=== PATIENT | female | born 2000 | race Caucasian/White ===

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

== ENCOUNTER 2023-08-08 22:07 | Emergency (ER) | payer OTHER ==
[~2023-08-08] VITALS: Ht 160 cm; Wt 45.4 kg
[~2023-08-08 22:07] MED LIST changes: +NORETHIND-ETH1 EAC1 PO; +PYRIDIUM200 M1 PO; +SEPTDS PO
[2023-08-08 22:42] LABS: BASO % 0.4 % (0.0-1.0); BILIRUBIN Negative (Negative); BLOOD Trace-Lysed (Negative); CLARITY Clear (Clear); COLOR Yellow (Yellow); EOS # 0.1 10*3/uL (0.0-0.4); EOS % 1.3 % (1.0-4.0); GLUCOSE Negative (Negative); HEMATOCRIT 40.3 % (37.0-47.0); KETONE Negative (Negative); LEUKO ESTERASE Negative (Negative); LYMPH # 3.6 10*3/uL (1.3-4.4); LYMPH % 34.5 % (27.0-41.0); MEAN CELL VOLUME 94.2 fl (81.0-99.0); MEAN CORPUSCULAR HGB 31.3 pg (27.0-31.0); MEAN CORPUSCULAR HGB CONC 33.3 g/dl (33.0-37.0); MEAN PLATELET VOLUME 8.2 fl (9.6-12.3); MONO # 0.9 10*3/uL (0.1-1.0); MONO % 8.9 % (3.0-9.0); NEUT # 5.7 10*3/uL (2.3-7.9); NEUT % 54.6 % (47.0-73.0); NITRITE Negative (Negative); PH 5.5 (4.5-8.0); PLATELET COUNT AUTOMATED 353 10*3/uL (130-400); RED BLOOD COUNT 4.28 10*6/uL (4.10-5.10); WHITE BLOOD COUNT 10.4 10*3/uL (4.8-10.8)
[2023-08-08 22:53] LABS: ACT PARTIAL THROMBO TIME 24.6 SECONDS (20.0-32.1)
[2023-08-08 23:01] LABS: BACTERIA 1+; MUCOUS 1+
[2023-08-08 23:11] LABS: BUN 5 mg/dl (9-23); CHLORIDE 105 mmol/L (98-107); POTASSIUM 4.1 mmol/L (3.4-5.1)
[2023-08-08] MEDS ORDERED: CEPHALEXIN500 M1 PO (23:13)
[2023-08-08] MEDS ORDERED: CEPHALEXIN 500 MG CAP PO ONE (23:15)
== END 2023-08-08 23:24 | disposition home or self-care (01) ==
LOC: ED 22:07
PROVIDERS: Nurse Practitioner Family
DX: O46.8X1 Other antepartum hemorrhage, first trimester (principal); R82.71 Bacteriuria; O99.331 Smoking (tobacco) complicating pregnancy, first trimester; F17.200 Nicotine dependence, unspecified, uncomplicated; Z3A.10 10 weeks gestation of pregnancy

== ENCOUNTER 2024-09-25 09:25 | Emergency (ER) | payer OTHER ==
[~2024-09-25] VITALS: Ht 160 cm; Wt 45.4 kg
[~2024-09-25 09:25] MED LIST changes: +CEPHALEXIN500 M1 PO
[2024-09-25] MEDS ORDERED: ZOLOFT100 MG PO (09:34)
[2024-09-25] MEDS ORDERED: HYDROXYZINE HCL25 MG PO (09:34)
[2024-09-25] MEDS ORDERED: BUSPAR15 MG PO (09:34)
[2024-09-25 09:56] LABS: BILIRUBIN Negative (Negative); BLOOD 2+ (Negative); CLARITY Turbid (Clear); COLOR Yellow (Yellow); KETONE Trace (Negative); LEUKO ESTERASE 3+ (Negative); NITRITE Negative (Negative); PH 6.0 (4.5-8.0); SPECIFIC GRAVITY 1.020 (1.001-1.030); UROBILINOGEN 1.0 E.U./dl (0.0-1.0)
[2024-09-25 10:06] LABS: BACTERIA 2+; RBC TNTC rbc/hpf (0-2); WBC TNTC wbc/hpf (0-5)
[2024-09-25] MEDS ORDERED: Ciprofloxacin Hydrochloride 500 MG TAB PO ONE (10:10)
[2024-09-25] MEDS ORDERED: CIPRO500 MG PO (10:21)
[2024-09-25] MEDS ORDERED: PYRIDIUM100 MG PO (10:21)
== END 2024-09-25 10:28 | disposition home or self-care (01) ==
LOC: ED 09:25
PROVIDERS: Emergency Medicine
DX: N39.0 Urinary tract infection, site not specified (principal); Z79.899 Other long term (current) drug therapy; Z88.2 Allergy status to sulfonamides